=== PATIENT | female | born 1965 | race Caucasian/White ===

== ENCOUNTER 2020-07-20 08:33 | Outpatient (REF) | payer OTHER, SELFPAY ==
--- NOTE | ~2020-07-20 | MM_ITS ---
EXAMINATION: MM SCREENING DIGITAL BREAST TOMOSYNTHESIS, BILATERAL CLINICAL INFORMATION: Screening. Asymptomatic. The lifetime risk of breast cancer based on the Tyrer-Cuzick Model is 15%. COMPARISON: Mammography: 07/15/2019, 07/09/2018, 07/06/2017, 06/30/2016 TECHNIQUE: Digital breast tomosynthesis is performed in both the craniocaudal and mediolateral oblique views along with computer-aided detection (CAD). Synthesized 2D images are generated from the tomosynthesis. Additional left MLO view is provided. FINDINGS: There are scattered areas of fibroglandular density (ACR BI-RADS breast composition Category b). The right breast has scattered fine nodularity without significant change. Medial breast shows abnormal calcifications. There is an incidental oil cyst anterior periareolar 9:00 left breast with fine rim calcification. The bilateral skin contours are unremarkable. Left breast has chronic parenchymal asymmetry central 3:30 o'clock position. This appears slightly more prominent inferior medial aspect, possibly incompletely compressed glandular tissue. Additional views will be requested. There is some fine nodularity anterior upper outer left breast decreased since 2017. There is new nodularity retroareolar 4:00 left breast 5 x 6 mm. Patient will be recalled for targeted ultrasound of this area. MM/MM tomosynthesis screening BI IMPRESSION: Left: -New circumscribed nodule retroareolar 4:00 position, possibly a cyst. -Subtle asymmetric density in area of otherwise chronic asymmetry, possibly incompletely compressed glandular tissue or summation artifact. Right: -No mammographic evidence of malignancy. No significant changes. ASSESSMENT: BI-RADS 0: Incomplete - Need Additional Imaging Evaluation RECOMMENDATION: 1. Additional views of the left breast for the subtle asymmetric density (3D rolled CC x2; 3D ML). 2. Targeted ultrasound left breast for retroareolar nodule. 3. Radiology department staff will contact the patient for additional imaging. This patient's information was entered into a reminder system with a target due date for their next mammogram.
== END 2020-07-20 08:34 | disposition home or self-care (01) ==
LOC: HO.MAMMO 08:33
PROVIDERS: PCP Internal Medicine Sports Medicine; Visit Provider Internal Medicine Sports Medicine
DX: Z12.31 Encounter for screening mammogram for malignant neoplasm of breast (principal)
CPT/HCPCS: 77063; 77067

== ENCOUNTER 2020-08-06 13:39 | Outpatient (REF) | payer OTHER, SELFPAY ==
--- NOTE | ~2020-08-06 | MM_ITS ---
EXAMINATION: MM DIAGNOSTIC DIGITAL BREAST TOMOSYNTHESIS, LEFT US DIAGNOSTIC ULTRASOUND BREAST, LEFT CLINICAL INFORMATION: Recall from screening for 2 findings left breast: Circumscribed retroareolar nodule and chronic parenchymal asymmetry mid central lower breast. COMPARISON: Mammography: 07/20/2020 and prior studies dating back to 06/29/2013 TECHNIQUE: Digital breast tomosynthesis is performed. 2D images are generated from the tomosynthesis. The following views are obtained: 3-D rolled CC x2, 3-D ML. Ultrasound left breast is targeted to the retroareolar region and lower and lower outer breast. Grayscale imaging and color Doppler are performed without and with harmonics. FINDINGS: There are scattered areas of fibroglandular density (ACR BI-RADS breast composition Category b). The additional views show chronic parenchymal asymmetry central 5:30 o'clock position which has been present on multiple prior exams with some waxing and waning prominence likely due to shifting fibroglandular tissue. The additional views show no mass or definite developing density when compared with remote exams. Ultrasound demonstrates simple cyst 3:00 retroareolar breast corresponding to the nodule on mammography and measuring 0.7 x 0.4 cm. Additional ultrasound of the central inferior and inferolateral breast shows no solid mass or architectural abnormality or focal shadowing. Results are discussed with the patient at time of visit. The retroareolar finding on recent mammography corresponds to an incidental simple cyst. The parenchymal asymmetry is likely stable from prior studies with no definite developing density. As a precaution, short interval six-month follow-up left diagnostic 3-D mammography will be recommended. MM/MM tomosynthesis added views L IMPRESSION: 1. Incidental simple cyst retroareolar left breast corresponding to the recent mammography. 2. Chronic probably benign parenchymal asymmetry central lower left breast with no associated mass or architectural abnormality. ASSESSMENT: BI-RADS 3: Probably Benign RECOMMENDATION: Diagnostic left mammography in 6 months. This patient's information was entered into a reminder system with a target due date for their next mammogram.
== END 2020-08-06 13:40 | disposition home or self-care (01) ==
LOC: HO.MAMMO 13:39
PROVIDERS: Visit Provider Internal Medicine Sports Medicine
DX: R92.8 Other abnormal and inconclusive findings on diagnostic imaging of breast (principal)
CPT/HCPCS: 76642; 77061; 77065

== ENCOUNTER 2021-02-04 12:41 | Outpatient (REF) | payer OTHER, SELFPAY ==
--- NOTE | ~2021-02-04 | MM_ITS ---
EXAMINATION: MM DIAGNOSTIC DIGITAL BREAST TOMOSYNTHESIS, LEFT CLINICAL INFORMATION: Short interval six-month follow-up probable benign chronic parenchymal asymmetry central lower left breast. The lifetime risk of breast cancer based on the Tyrer-Cuzick Model is 16%. COMPARISON: Mammography: 08/06/2020, 07/20/2020, 07/15/2019, 07/09/2018, 07/06/2017, 06/30/2016, 05/06/2015, 06/29/2013; targeted left breast ultrasound 08/06/2020. TECHNIQUE: Digital breast tomosynthesis is performed in both the craniocaudal and mediolateral oblique views along with computer-aided detection (CAD). Synthesized 2D images are generated from the tomosynthesis. Additional CC and additional MLO views are provided. FINDINGS: There are scattered areas of fibroglandular density (ACR BI-RADS breast composition Category b). Parenchymal pattern is similar to prior studies. There is no interval developing density central lower breast. The chronic asymmetry is similar to prior studies. The subtle accentuated contour medial aspect is similar to CC view 2013. Left breast will be reassessed again at time of annual bilateral mammography, due in 6 months. The remainder left breast is without change. There is a nodule anterior upper outer periareolar region corresponding to cyst on ultrasound. There is also an oil cyst anterior upper inner left breast. No abnormal calcifications. Results are provided to the patient at time of visit by the technologist. MM/MM tomosynthesis diagnostic LT IMPRESSION: No interval developing density or mass or architectural changes. ASSESSMENT: BI-RADS 3: Probably Benign RECOMMENDATION: Diagnostic mammography at time of annual bilateral exam, due in 6 months. This patient's information was entered into a reminder system with a target due date for their next mammogram.
== END 2021-02-04 12:42 | disposition home or self-care (01) ==
LOC: HO.MAMMO 12:41
PROVIDERS: PCP Pediatrics; Visit Provider Pediatrics
DX: R92.8 Other abnormal and inconclusive findings on diagnostic imaging of breast (principal)
CPT/HCPCS: 77061; 77065

== ENCOUNTER 2021-08-12 12:01 | Outpatient (REF) | payer OTHER, SELFPAY ==
--- NOTE | ~2021-08-12 | MM_ITS ---
EXAMINATION: MM DIAGNOSTIC DIGITAL BREAST TOMOSYNTHESIS, BILATERAL CLINICAL INFORMATION: Due for yearly. 12 month follow-up probable benign chronic parenchymal asymmetry central lower outer left breast. TC score 15%. COMPARISON: Mammography: 02/04/2021 and multiple exams dating back to 03/17/2012. Ultrasound left breast 08/06/2020. TECHNIQUE: Digital breast tomosynthesis is performed in both the craniocaudal and mediolateral oblique views along with computer-aided detection (CAD). Synthesized 2D images are generated from the tomosynthesis. Additional left CC view is provided. FINDINGS: There are scattered areas of fibroglandular density (ACR BI-RADS breast composition Category b). Parenchymal pattern is similar to prior studies. There are no abnormal calcifications. The axilla and skin contours are unremarkable. The right breast is unremarkable. The left breast has chronic parenchymal asymmetry central 5:00 position possibly with duct ectasia under surveillance. The pattern is similar to prior exams dating back to 2011. There is no increased size. There is some involution of fibroglandular tissue in the breasts since the more remote exams. A nodule is again noted anterior 3:00 left breast corresponding to a cyst on targeted ultrasound. There is an incidental oil cyst with peripheral rim calcification again noted anterior 12:00 left breast. Results are provided to the patient at time of visit by the technologist. Left breast asymmetry will be reassessed again in 6 months. MM/MM tomosynthesis diagnostic BI IMPRESSION: 1. Left: No significant changes from prior exams. 2. Right: No mammographic evidence of malignancy. ASSESSMENT: BI-RADS 3: Probably Benign RECOMMENDATION: Diagnostic left mammography in 6 months. This patient's information was entered into a reminder system with a target due date for their next mammogram.
== END 2021-08-12 12:02 | disposition home or self-care (01) ==
LOC: HO.MAMMO 12:01
PROVIDERS: PCP Pediatrics; Visit Provider Pediatrics
DX: R92.8 Other abnormal and inconclusive findings on diagnostic imaging of breast (principal)
CPT/HCPCS: 77062; 77066

== ENCOUNTER 2022-02-17 12:43 | Outpatient (REF) | payer OTHER, SELFPAY ==
--- NOTE | ~2022-02-17 | MM_ITS ---
EXAMINATION: MM DIAGNOSTIC DIGITAL BREAST TOMOSYNTHESIS, LEFT CLINICAL INFORMATION: Short interval follow-up probable benign chronic parenchymal asymmetry mid 5:00 left breast inferomedial aspect of the parenchyma. The lifetime risk of breast cancer based on the Tyrer-Cuzick Model is 15%. COMPARISON: Mammography: 08/12/2021, 02/04/2021, 08/06/2020, 07/20/2020 (BI-RADS 0), targeted ultrasound left breast 08/06/2020; prior mammograms dating back to 03/17/2012. TECHNIQUE: Digital breast tomosynthesis is performed in both the craniocaudal and mediolateral oblique views along with computer-aided detection (CAD). Synthesized 2D images are generated from the tomosynthesis. FINDINGS: There are scattered areas of fibroglandular density (ACR BI-RADS breast composition Category b). There is chronic parenchymal asymmetry central 5:00 left breast, similar to multiple prior exams dating back to 2011. The subtle nodular medial margin is stable from recent diagnostic exams and similar to remote prior studies 2013 and 2011. No correlate on MLO view. Left breast will be reassessed again at time of annual bilateral mammography, due in 6 months, to conclude long-term surveillance. Remainder of the left breast is unremarkable. The retroareolar cyst 3:00 anterior breast is regressed from recent imaging. No abnormal calcifications. Skin contours are smooth. Results are provided to the patient at time of visit by the technologist. MM/MM tomosynthesis diagnostic LT IMPRESSION: No significant changes from prior studies. ASSESSMENT: BI-RADS 3: Probably Benign RECOMMENDATION: Diagnostic mammography at time of annual bilateral mammography, due in 6 months. This patient's information was entered into a reminder system with a target due date for their next mammogram.
== END 2022-02-17 12:44 | disposition home or self-care (01) ==
LOC: HO.MAMMO 12:43
PROVIDERS: PCP Pediatrics; Visit Provider Pediatrics
DX: R92.2 Inconclusive mammogram (principal)
CPT/HCPCS: 77061; 77065

== ENCOUNTER 2022-08-18 13:18 | Outpatient (REF) | payer OTHER, SELFPAY ==
--- NOTE | ~2022-08-18 | MM_ITS ---
EXAMINATION: MM DIAGNOSTIC DIGITAL BREAST TOMOSYNTHESIS, BILATERAL CLINICAL INFORMATION: Due for yearly. Also follow-up probable benign chronic parenchymal asymmetry mid 5:00 left breast. The lifetime risk of breast cancer based on the Tyrer-Cuzick Model is 13%. COMPARISON: Multiple prior mammography exams, most recent 02/17/2022. TECHNIQUE: Digital breast tomosynthesis is performed in both the craniocaudal and mediolateral oblique views along with computer-aided detection (CAD). Synthesized 2D images are generated from the tomosynthesis. Additional exaggerated left CC view is provided. FINDINGS: There are scattered areas of fibroglandular density (ACR BI-RADS breast composition Category b). Breasts are predominantly fatty replaced with scattered stable fibroglandular densities and stromal markings. The chronic asymmetry mid central 5:00 left breast is similar to prior exams. There is no developing density from remote prior mammography. This conclude surveillance. There is no significant mass or developing density or architectural abnormality. No abnormal calcifications. The axilla are unremarkable. Results are provided to the patient at time of visit by the technologist. MM/MM tomosynthesis diagnostic BI IMPRESSION: No mammographic evidence of malignancy. No significant changes from prior studies. ASSESSMENT: BI-RADS 2: Benign RECOMMENDATION: Routine annual mammography screening. This patient's information was entered into a reminder system with a target due date for their next mammogram.
== END 2022-08-18 13:19 | disposition home or self-care (01) ==
LOC: HO.MAMMO 13:18
PROVIDERS: PCP Pediatrics; Visit Provider Pediatrics
DX: R92.2 Inconclusive mammogram (principal)
CPT/HCPCS: 77062; 77066

== ENCOUNTER 2023-08-24 12:34 | Outpatient (REF) | payer OTHER, SELFPAY ==
--- NOTE | ~2023-08-24 | MM_ITS ---
EXAMINATION: MM SCREENING DIGITAL BREAST TOMOSYNTHESIS, BILATERAL CLINICAL INFORMATION: Screening. Asymptomatic. COMPARISON: Mammography: This study is compared with prior exams dating back to 2019. TECHNIQUE: Digital breast tomosynthesis is performed in both the craniocaudal and mediolateral oblique views along with computer-aided detection (CAD). Synthesized 2D images are generated from the tomosynthesis. FINDINGS: There are scattered areas of fibroglandular density (ACR BI-RADS breast composition Category b). There are no significant masses, abnormal calcifications, or other abnormalities. MM/MM tomosynthesis screening BI IMPRESSION: No mammographic evidence of malignancy. ASSESSMENT: BI-RADS BI-RADS 2 - Benign Findings RECOMMENDATION: Routine annual mammography screening. 1 year F/U This examination should not preclude the clinical evaluation of a suspicious palpable abnormality. This patient's information was entered into a reminder system with a target due date for their next mammogram.
== END 2023-08-24 12:35 | disposition home or self-care (01) ==
LOC: HO.MAMMO 12:34
PROVIDERS: PCP Pediatrics; Visit Provider Pediatrics
DX: Z12.31 Encounter for screening mammogram for malignant neoplasm of breast (principal)
CPT/HCPCS: 77063; 77067

== ENCOUNTER → 2023-08-24 13:00 | Outpatient (BNV) | payer OTHER, SELFPAY | PROVIDERS: PCP Pediatrics; Visit Provider Radiology Diagnostic Radiology | DX: Z12.31 Encounter for screening mammogram for malignant neoplasm of breast (principal) | CPT/HCPCS: 77063; 77067 ==

== ENCOUNTER 2024-09-05 12:46 | Outpatient (REF) | payer OTHER, SELFPAY ==
--- OUTSIDE RECORDS SUMMARY | 2024-09-05 15:22 | XMS_ITS | Encounter Summary ---
Author Organization [facility] Address [address] [place] [address] Phone Care Team Providers Care Software Packaging Engineer Name Role Phone Christiano Lloyd MD Primary Care Provider + Reason for Visit * Reason Comments Med Refill Encounter Details Date Type Department Care Team (Late st Contact Info) Description 07/27/2024 Refill [facility] [address] [place] [address] Vivek Montana MD [address] [place] [address] Social History Tobacco Use Types Packs/Day Years Used Date Smoking Tobacco: Former Alcohol Use Standard Drinks/Week Comments Yes 0 (1 standard drink = 0.6 oz pure alcohol) Alcoholic Drinks/day: Occasional social drink Comments Unknown Sex and Gender Information Value Date Recorded Sex Assigned at Not on file Legal Sex Female 4:37 PM EST Gender Identity Not on file Sexual Orientation Not on file documented as of this encounter Plan of Treatment Upcoming Encounters Date Type Department Care Team (Late st Contact Info) Description 10/03/2024 9:00 AM EDT Office Visit [facility] [address] [place] [address] Vivek Montana MD [address] [place] [address] documented as of this encounter Visit Diagnoses Not on filedocumented in this encounter Care Teams Software Packaging Engineer Relationship Specialty Start Date End Date Christiano Lloyd MD PCP - General Internal Medicine 11/26/21 documented as of this encounter
--- OUTSIDE RECORDS SUMMARY | 2024-09-05 15:22 | XMS_ITS | Data Portability ---
Author Organization [facility] [address] Address [address] [place] [address] Care Team Providers Care Linesperson Name Role Phone LAVON BLACKWELL Primary Care Provider Assessment No assessment recorded. Plan of Treatment Reminders Order Date Submit Date Provider Last Modified By Organization Details Last Modified Time Details Appointments None recorded. Lab None recorded. Referral None recorded. Procedures None recorded. Surgeries None recorded. Imaging None recorded. Medication Orders triamcinolo ne acetonide 0.1 % topical cream 2023 024 [id number], [address] [place], [address], 4 10:34:13 prednisone 20 mg tablet 2021 022 [id number], [address] [place], [address], 4 10:25:36 Patient TargetsNo targets recorded. Patient Instructions Encounter Date Encounter Id Patient Instructions Last Modified By Organization Details Last Modified Time 05/03/2022 [id number] cough: care instructions Not available 05/03/2022 08:45:55 As we discussed your symptoms are likely viral and we are treating your symptoms while your immune system takes care of things. Drink plenty of fluid and stay on the Mucinex. You can also use tylenol and ibuprofen for pain or fever. Follow up with your PCP as needed. Not available 05/03/2022 08:45:24 01/27/2024 [id number] Based on your ex am and presentation, you are being diagnosed with NONSPECIFIC RASH. The following is my recommendations to help you with your condition: 1. Take Antihistamine - like Claritin, Nighat, or Benedryl 2. Hot showers will make you more itchy. 3. No creams or lotions 4. Cool Compresses 5. Try not to scratch or itch since this can lead to infection. Return to clinc in one week if no improvement You should be seen more urgently if you develop any of the followin. Worsening Redness 2. Purulent Discharge from the skin 3. Fever > 101.0 4. Joint Pain 5. Swelling [id number] Not available 01/27/2024 10:34:48 Reason for Referral None Reported. Problems Name Problem SNOMED Code Status Onset Date Resolution Date Notes Provider Name and Address Organization Details Recorded Time Hypertensive disorder 79491416 Active 2021 MU fermin, [place] - [facility] 2 08:14:01 Notes:born with one kidney Problem Notes None recorded. Procedures Surgical History Date Name Laterality Status Provider Name and Address Organization Details Recorded Time hysterectomy completed MU MINER [place] - [facility] 05/03/2022 08:14:35 colonoscopy completed MU MINER [place] - [facility] 05/03/2022 08:14:42 section completed MU MINER [place] - [facility] 05/03/2022 08:14:50 Imaging Results None recorded. Procedure Notes None recorded. Medical Equipment None Reported. Allergies Allergen ID Allergen Name Allergen Category Reaction Reaction Severity Criticality Documentation Date Start Date Code Code System Note Provider Name and Address Organization Details Recorded Time 7059 Bactrim medicatio n anaphylax is Not available Not available 05/03/2022 37075 9 RxNorm MU MINER null, [place] - [facility] 2 08:12:27 7064 Non-stero idal anti-infl ammatory agent (product) medicatio n rash Not available Not available 05/03/2022 52462 005 SNOMED MU MINER null, [place] - [facility] 2 08:12:39 Medications Name Sig Start Date Stop Date Status Note LastModified by Organization Details LastModified Time prednisone 20 mg tablet Take 2 tablets every day by oral route for 5 days. 01/26 completed Not Available Not Available Not Available triamcinolo ne acetonide 0.1 % topical cream APPLY A THIN LAYER TO THE AFFECTED AREA(S) BY TOPICAL ROUTE 2 TIMES PER DAY FOR 7 DAYS 2023 active Not Available Not Available Not Avai lable valsartan active Not Available Not Isabela ilable Not Available folic acid active Not Available Not Av ailable Not Available Multi Vitamin active Not Available Not Available Not Available Vitals Date Recorded Body height Body mass index (BMI) Body weight Respiratory rate Pain severity - 0-10 verbal numeric rating [Score] - Reported Oxygen saturation Oxygen saturation in Arterial blood by Pulse oximetry Heart rate Body temperature Systolic blood pressure Diastolic blood pressure Provider Name and Address Organization Details Last Updated DateTime 2 161.29 cm 42.5 kg/m2 859406. 54 g 18 /min 0 97 % 97 % 101 /min 98.5 [degF] 131 mm[Hg] 83 mm[Hg] MU MINER [employer] 2 08:16:03 Date Recorded Body height Body mass index (BMI) Body weight Oxygen saturation Oxygen saturation in Arterial blood by Pulse oximetry Heart rate Body temperature Systolic blood pressure Diastolic blood pressure Provider Name and Address Organization Details Last Updated DateTime 4 160.02 cm 39.9 kg/m2 329429. 28 g 99 % 99 % 68 /min 98 [degF] 110 mm[Hg] 76 mm[Hg] [facility] 4 10:24:57 Social History Question Answer Notes LastModified by Organizat ion Details LastModified Time Tobacco Smoking Status Never Smoker [facility] [place] [facility] 05/03/2022 08:14:25 What Is Your Level Of Alcohol Consumption? Occasional Information not available 05/03/2022 How Many Times Per Week Do You Consume Alcohol? Less Than 1 Time Per Week Information not available 01/27/2024 Are You Currently Employed? Yes Information not available 01/27/2024 Have You Had A Flu Shot This Season? Yes Information not available 01/27/2024 If No, Would You Like A Flu Shot Today? Yes Information not available 01/27/2024 What Is Your Relationship Status? Information not available 01/27/2024 Are You Passively Exposed To Smoke? No Information no t available 01/27/2024 Do You Or Have You Ever Used Any Other Forms Of Tobacco Or Nicotine? No Information not available 05/03/2022 Sex: Unknown Functional Status None recorded. Mental Status None recorded. Family History Relationship Description Onset Age of this Age Resolved Age Notes LastModified by Organization Details LastModified Time Father No current problems or disability [email or web address] Not available 05/03 08:14:14 Mother No current problems or disability [email or web address] Not available 05/03 08:14:14 Medical History No medical history recorded. Gynecological History Statement/Question Response Is there any chance of ? No LMP N/A Obstetrics History GPAL:G 0 P 0 0 0 0 Immunizations Vaccine Type Date Status Note Provider Nam e and Address Organization Details Recorded Time influenza, unspecified formulation 03/31/2022 completed DL Clark - [facility] 05/03/2022 08:13:27 Past Encounters Encounter ID Performer Location Encounter Start Date Encounter Closed Date Diagnosis/Indication Diagnosis SNOMED-CT Code Diagnosis ICD10 Code Diagnosis Note [id number] [facility] [facility] [address] 03/01/2018 09:55:22 03/01/2018 11:23:17 [id number] [facility] [address] [address] 05/16/2021 11:42:57 05/16/2021 13:50:14 [id number] [facility] [address] [facility] [address] [place] [address] 05/03/2022 08:05:42 05/03/2022 08:54:50 Acute bronchitis 42057406 J20.9 [id number] [facility] [address] [facility] [address] [address] 01/27/2024 10:03:16 01/27/2024 10:47:36 Localized eruption of skin 748059871 R21 Health Concerns Section Related Observation LastModified by Organization Detai ls LastModified Time None Recorded Concern Status LastModified by Organization Details LastModified Time None Recorded Advance Directives Directive None Recorded Payers Encounter Date Sequence Insurance Name Policy Number Policy Penny Covered Member ID Penny Member ID Guarantor Name 05/16/2021 1 [facility] Elizabet Saenz [id number] 1 Elizabet Saenz 05/03/2022 1 [facility] Elizabet Saenz [id number] 1 Elizabet Saenz 01/27/2024 1 [facility] Elizabet Saenz [id number] Elizabet Saenz Notes Date Note Type Note Provider Name and Address Organization Details Recorded Time 05/03/20 22 text/htm l CoughReported bypatient.source of patient informationInformation obtained from patient; Patient arrived at Urgent Care ambulatory; learning styles: auditory Quality:productive cough; symptoms worse with lying down Severity:improving; moderate Timing:improving Context:Patient denies vaping; non-smoker Associated Symptoms:no fever; no chills; no chest pain; no heartburn; no nausea; no vomiting; no edema; no agitation; no wheezing; no post nasal drip DL W[address], [place], [address], [facility] 05/03/2022 08:52:47 01/27/20 24 text/htm l 58 y.o female pt presetns with pruritic rash on both chest, neck and back on both sides x 1-2 days. Pt denies travel, dealing with at risk population or recent exposures to new chemicals. Pt denies fever, pain or other sx's. DL GRIFFITHS [address], [address], [employer] [employer] 01/27/2024 12:46:11 OBGyn Episode No OBEpisode recorded.
--- OUTSIDE RECORDS SUMMARY | 2024-09-05 15:22 | XMS_ITS | Encounter Summary ---
Author Organization [facility] Address [address] [place] [address] Phone Care Team Providers Care Transportation Manager Name Role Phone Christiano Lloyd MD Primary Care Provider + Reason for Visit * Reason Comments Med Change Request Encounter Details Date Type Department Care Team (Late Contact Info) Description 08/04/2021 Refill [facility] [address] [place] [address] Garret Jarrett MD [address] [place] [address] Social History Tobacco Use Types [...] Office Visit [facility], [address] [place] [place] [address] Vivek Montana MD [address] [place] [address] documented as of this encounter Visit Diagnoses Not on filedocumented in this encounter Care Teams Transportation Manager Relationship Specialty Start Date End Date Christiano Lloyd MD PCP - General Internal Medicine 11/26/21 documented as of this encounter
--- OUTSIDE RECORDS SUMMARY | 2024-09-05 15:22 | XMS_ITS | Encounter Summary ---
Author Organization [facility] Address [address] [place] [address] Phone Care Team Providers Care Dyno Technician Name Role Phone Christiano Lloyd MD Primary Care Provider + Reason for Visit * Reason Comments Med Change Request Encounter Details Date Type Department Care Team (Late Contact Info) Description 08/08/2021 Refill [facility] [address] [place] [address] Garret Jarrett MD [address] [place] [address] Social History Tobacco Use Types [...] Office Visit [facility], [address] [address] Vivek Montana MD [address] [place] [address] documented as of this encounter Visit Diagnoses Not on filedocumented in this encounter Care Teams Dyno Technician Relationship Specialty Start Date End Date Christiano Lloyd MD PCP - General Internal Medicine 11/26/21 documented as of this encounter
--- OUTSIDE RECORDS SUMMARY | 2024-09-05 15:22 | XMS_ITS | Encounter Summary ---
Author Organization [facility] Address [address] [place] [address] Phone Care Team Providers Care Research Hydrologist Name Role Phone Christiano Lloyd MD Primary Care Provider + Reason for Visit * Reason Comments Med Change Request Encounter Details Date Type Department Care Team (Late Contact Info) Description 07/10/2021 Refill [facility] [address] [place] [address] Garret Jarrett MD [address] [place] [address] Social History Tobacco Use Types [...] Office Visit [facility], [address] [place] [address] Vivek Montana MD [address] [place] [address] documented as of this encounter Visit Diagnoses Not on filedocumented in this encounter Care Teams Research Hydrologist Relationship Specialty Start Date End Date Christiano Lloyd MD PCP - General Internal Medicine 11/26/21 documented as of this encounter
--- OUTSIDE RECORDS SUMMARY | 2024-09-05 15:22 | XMS_ITS | Clinical Summary ---
Author Organization [facility] Address [address] [place] [address] Phone Care Team Providers Care Electrical Laboratory Technician Name Role Phone Christiano Lloyd MD Primary Care Provider + Allergies Active Allergy Reactions Criticality Noted Date Comments Nsaids Rash Low 03/01/2019 Sulfa Antibiotics Other (see comments) 07/04/19 22 Sulfamethoxazole-Trimet hopri 03/01/2019 Throat tightness Medications folic acid (FOLVITE) 1 MG tablet TAKE 1 TABLET (1,000 MCG TOTAL) BY MOUTH ONCE DAILY 90 tablet 3 07/26/2024 Active valsartan (DIOVAN) 160 MG tablet Take 1 tablet (160 mg total) by mouth 1 (one) time each day 90 tablet 3 07/27/2024 Active Active Problems Problem Noted Date Diagnosed Date Renal agenesis, 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 Overview (07/04/2021): solitary left kidney 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 Essential hypertension Focal segmental glomerulosclerosis Proteinuria Resolved Problems Problem Noted Date Diagnosed Date Resolved Date Stage 3a chronic kidney disease 07/05/2020 07/14/2022 Encounters Date Type Department Care Team Description 07/27/2024 Refill [facility] [place], [address] [place] [address] Lindsey Mack MA 07/27/2024 Refill [facility] [address] [place] [phone] Vivek Montana MD 07/26/2024 Refill [facility] [address] [place] [address] Vivek Montana MD from Last 3 Months Immunizations Name Administration Dates Next Due Influenza, MDCK, PF, Quadrivalent 03/16/2019 Influenza, Quadrivalent, Preservative Free 03/28 Family History Medical History Relation Comments Prostate cancer Brother Asthma Daughter Stroke Father Breast cancer Mother Relation Status Comments Brother Daughter Alive Father Mother Social History Tobacco Use Types Packs/Day Years Used Date Smoking Tobacco: Former Alcohol Use Standard Drinks/Week Comments Yes 0 (1 standard drink = 0.6 oz pure alcohol) Alcoholic Drinks/day: Occasional social drink Comments Unknown Sex and Gender Information Value Date Recorded Sex Assigned at Not on file Legal Sex Female 4:37 PM EST Gender Identity Not on file Sexual Orientation Not on file Last Filed Vital Signs Vital Sign Reading Time Taken Comments Blood Pressure 104/66 06/26/2019 8:09 AM EST Pulse - - Temperature - - Respiratory Rate - - Oxygen Saturation - - Inhaled Oxygen Concentration - - Weight 109 kg (240 lb) 06/26/2019 8:09 AM EST Height 160 cm (5' 3 ) 06/27/2018 12:00 PM EST Body Mass Index 42.51 06/27/2018 12:00 PM EST Plan of Treatment Upcoming Encounters Date Type Department Care Team (Late st Contact Info) Description 10/03/2024 9:00 AM EDT Office Visit [facility] [address] [place] [phone] Vivek Montana MD [address] [place] [address] [place] [phone] Health Maintenance Due Date Last Done Comments Breast Cancer Screening 1965 Colorectal Cancer Screening: Annual FOBT 10/22/2012 Colorectal Cancer Screening: Colonoscopy 10/22/2012 Colorectal Cancer Screening: Sigmoidoscopy 10/22/2012 Pneumococcal Vaccine: Pediatrics (0 to 5 Years) and At-Risk Patients (6 to 64 Years) (2 of 2 - PCV) 11/26/2022 11/26/2021 Influenza Vaccine (Season Ended) 2025 03/31/2022, 03/28/2020, 03/16/2019 Hepatitis B Vaccine Aged Out No longe r eligible based on patient's age to complete this topic Procedures Procedure Name Priority Date/Time Associated Diagnosis Comments PTH, INTACT Routine 06/24/2024 8:31 AM EST MAGNESIUM Routine 06/24/2024 8:31 AM EST ALBUMIN Routine 06/24/2024 8:31 AM EST PHOSPHATE ( PHOSPHORUS) Routine 06/24/2024 8:31 AM EST URIC ACID Routine 06/24/2024 8:31 AM EST VITAMIN D 25 HYDROXY Routine 06/24/2024 8:31 AM EST URINE ALBUMIN / CREATININE RATIO Routine 06/24/2024 8:31 AM EST BASIC METABOLIC PANEL Routine 06/24/2024 8:31 AM EST CBC Routine 06/24/2024 8:31 AM EST URINALYSIS WITH MICROSCOPIC Routine 06/24/2024 8:31 AM EST MICROSCOPIC EXAMINATION - DO NOT USE Routine 06/24/2024 8:31 AM EST from Last 3 Months Results * (ABNORMAL) Microscopic Examination (06/24/2024 8:31 AM EST) WBC, Urine 11-30(A) 0 - 5 /hpf [facility] RBC, Urine 0-2 0 - 2 /hpf [facility] Squamous Epithelial, Urine >10(A) 0 - 10 /hpf [facility] Casts None seen None seen /lpf [facility] Bacteria, Urine None seen None seen/Few [facility] 06/24/2024 8:31 AM EST 06/24/2024 Vivek Montana MD LAB MICROBIOLOGY - GENERAL OR DERABLES Final Result [facility] [address] [place] [address] * (ABNORMAL) Urine Albumin / Creatinine Ratio (06/24/2024 8:31 AM EST) Creatinine, Ur 132.9 Not Estab. mg/dL [facility] Albumin, Urine 175.7 Not Estab. ug/mL [facility] Albumin/Creatin ine Ratio 132(H) 0 - 29 mg/g creat [facility] Comment: ? Normal: ?0 - ??29 ? Moderately increased: 30 - 300 ? Severely increased: ? >300 06/24/2024 8:31 AM EST 06/24/2024 Vivek Montana MD LAB URINE ORDERABLES Final Re sult [facility] [address] [place] [address] * Vitamin D 25 Hydroxy (06/24/2024 8:31 AM EST) Vitamin D, 25-OH, Total 55.4 30.0 - 100.0 ng/mL [facility] Comment: Vitamin D deficiency has been defined by the [place] of Medicine and an Endocrine Society practice guideline as a level of serum 25-OH vitamin D less than 20 ng/mL (1,2). The Endocrine Society went on to further define vitamin D insufficiency as a level between 21 and 29 ng/mL (2). 1. IOM ([place] of Medicine). 2010. Dietary reference ?? intakes for calcium and D. [place]: The ?? National [employer]. 2. Maye MF, Martha SIMS, Juan RAI, et al. ?? Evaluation, treatment, and prevention of vitamin D ?? deficiency: an Endocrine Society clinical practice ?? guideline. JCEM. 2010; 96(7):1911-30. 06/24/2024 8:31 AM EST 06/24/2024 us Vivek Montana MD LAB BLOOD ORDERABLES Final Re sult [facility] [address] [place] [address] * (ABNORMAL) Urinalysis with microscopic (06/24/2024 8:31 AM EST) Specific [place], Urine 1.018 1.005 - 1.030 [facility] pH Urine 6.5 5.0 - 7.5 [facility] [phone] Color, Urine Yellow Yellow [facility] [phone] Appearance Urine Clear Clear [facility] WBC Esterase Urine 2+(A) Negative [facility] Protein, Ur 2+(A) Negative/Tra ce [facility] [phone] Glucose, Ur Negative Negative [facility] Ketones, Urine Negative Negative [facility] Blood Urine Negative Negative [facility] Bilirubin Urine Negative Negative [facility] Urobilinogen Urine 0.2 0.2 - 1.0 mg/dL [facility] Nitrite, Urine Negative Negative [facility] Microscopic Examination See below: [facility] Comment:Microscopic was shadia cated and was performed. 06/24/2024 8:31 AM EST 06/24/2024 Vivek Montana MD LAB URINE ORDERABLES Final Re sult Performing Organization Address City/[facility]/ZIP Co de Phone Number [facility] [address] [place] [address] * CBC (06/24/2024 8:31 AM EST) WBC 5.3 3.4 - 10.8 x10E3/uL [facility] RBC 4.34 3.77 - 5.28 x10E6/uL [facility] Hemoglobin 13.3 11.1 - 15.9 g/dL [facility] Hematocrit 39.8 34.0 - 46.6 % [facility] MCV 92 79 - 97 fL [facility] MCH 30.6 26.6 - 33.0 pg [facility] MCHC 33.4 31.5 - 35.7 g/dL [facility] RDW 11.8 11.7 - 15.4 % [facility] Platelets 269 150 - 450 x10E3/uL [facility] 06/24/2024 8:31 AM EST 06/24/2024 Vivek Montana MD LAB BLOOD ORDERABLES Final Re sult [facility] [address] [place] [address] * Uric Acid (06/24/2024 8:31 AM EST) Uric Acid 7.0 3.0 - 7.2 mg/dL [facility] Comment:Therapeutic target f or gout patients: <6.0 06/24/2024 8:31 AM EST 06/24/2024 Vivek Montana MD LAB BLOOD ORDERABLES Final Re sult Performing Organization Address [facility] Co de Phone Number [facility] [address] [place] [address] * Phosphorus (06/24/2024 8:31 AM EST) Phosphorus 3.6 3.0 - 4.3 mg/dL [facility] 06/24/2024 8:31 AM EST 06/24/2024 us Vivek Montana MD LAB BLOOD ORDERABLES Final Re sult Performing Organization Address [facility]/ZIP Co de Phone Number [facility] [address] [place] [address] * PTH, Intact (06/24/2024 8:31 AM EST) PTH 28 15 - 65 pg/mL [facility] 06/24/2024 8:31 AM EST 06/24/2024 us Vivek Montana MD LAB BLOOD ORDERABLES Final Re sult Performing Organization Address City/[facility]/ZIP Co de Phone Number [facility] [address] [place] [address] * Magnesium (06/24/2024 8:31 AM EST) Pathologist [facility] Magnesium 1.7 1.6 - 2.3 mg/dL [facility] 06/24/2024 8:31 AM EST 06/24/2024 Vivek Montana MD LAB BLOOD ORDERABLES Final Re [facility]ult [facility] [address] [place] [address] * Albumin (06/24/2024 8:31 AM EST) Pathologist [facility] Albumin 4.2 3.8 - 4.9 g/dL [facility] 06/24/2024 8:31 AM EST 06/24/2024 Vivek Montana MD LAB BLOOD ORDERABLES Final Re sult Performing Organization Address City/[facility]/ZIP Co de Phone Number [facility] [address] [place] [address] * (ABNORMAL) Basic Metabolic Panel (06/24/2024 8:31 AM EST) Pathologist [facility] Glucose 91 70 - 99 mg/dL [facility] BUN 17 8 - 27 mg/dL [facility] Creatinine 1.15(H) 0.57 - 1.00 mg/dL [facility] eGFR CKD-EPI CR 2020 55(L) >59 mL/min/1.7 3 [facility] BUN/Creatinine Ratio 15 12 - 28 [facility] Sodium 141 134 - 144 mmol/L [facility] Potassium 4.4 3.5 - 5.2 mmol/L [facility] Chloride 103 96 - 106 mmol/L [facility] Bicarbonate (CO2) 24 20 - 29 mmol/L [facility] Calcium 9.8 8.7 - 10.3 mg/dL [facility] 06/24/2024 8:31 AM EST 06/24/2024 Vivek Montana MD LAB BLOOD ORDERABLES Final Re sult [facility] [address] [place] [address] from Last 3 Months Insurance [employer]) [phone] ([place] [id number] Care Teams Electrical Laboratory Technician Relationship Specialty Start Date End Date Christiano Lloyd MD PCP - General Internal Medicine 11/26/21
--- OUTSIDE RECORDS SUMMARY | 2024-09-05 15:22 | XMS_ITS | Encounter Summary ---
Author Organization [facility] Address [address] [place] [address] Phone Care Team Providers Care Rescue Worker Name Role Phone Christiano Lloyd MD Primary Care Provider + Reason for Visit * Reason Onset Date Comments Med Refill 08/18/2023 Encounter Details Date Type Department Care Team (Late st Contact Info) Description 08/18/2023 Refill [facility] [address] [place] [phone] Garret Jarrett MD [address] [place] [address] Social History Tobacco Use Types [...] Office Visit [facility], [address] [place] [address] Vivek Montana MD [address] [place] [address] documented as of this encounter Visit Diagnoses Not on filedocumented in this encounter Care Teams Rescue Worker Relationship Specialty Start Date End Date Christiano Lloyd MD PCP - General Internal Medicine 11/26/21 documented as of this encounter
--- OUTSIDE RECORDS SUMMARY | 2024-09-05 15:22 | XMS_ITS ---
Author Name [facility] Organization Unknown Care Team Organization Name Specialty Phone Email Start Date End [facility]
--- OUTSIDE RECORDS SUMMARY | 2024-09-05 15:22 | XMS_ITS | Encounter Summary ---
Author Organization [facility] Address [address] [place] [address] Phone Care Team Providers Care Certified Welding Inspector Name Role Phone Christiano Lloyd MD Primary Care Provider + Reason for Visit * Reason Onset Date Comments Med Refill 08/11/2023 Encounter Details Date Type Department Care Team (Late st Contact Info) Description 08/11/2023 Refill [facility] [address] [place] [phone] Garret Jarrett MD [address] [place] [address] Social History Tobacco Use Types [...] Transplant Services [facility], [address] [place] [address] Vivek Montana MD [address] [place] [address] documented as of this encounter Visit Diagnoses Not on filedocumented in this encounter Care Teams Certified Welding Inspector Relationship Specialty Start Date End Date Christiano Lloyd MD PCP - General Internal Medicine 11/26/21 documented as of this encounter
== END 2024-09-05 12:47 | disposition home or self-care (01) ==
LOC: HO.MAMMO 12:46
PROVIDERS: PCP Pediatrics; Visit Provider Pediatrics
DX: Z12.31 Encounter for screening mammogram for malignant neoplasm of breast (principal)
CPT/HCPCS: 77063; 77067

== ENCOUNTER → 2024-09-05 13:00 | Outpatient (BNV) | payer OTHER, SELFPAY | PROVIDERS: PCP Pediatrics; Visit Provider Internal Medicine | DX: Z12.31 Encounter for screening mammogram for malignant neoplasm of breast (principal) | CPT/HCPCS: 77063; 77067 ==

== ENCOUNTER 2024-10-24 10:18 | Outpatient (REF) | payer OTHER, SELFPAY ==
--- NOTE | ~2024-10-24 | US_ITS ---
EXAMINATION: MM DIAGNOSTIC DIGITAL BREAST TOMOSYNTHESIS, LEFT Limited left breast ultrasound. CLINICAL INFORMATION: Call back from screening for focal asymmetry in the central outer left breast with associated distortion. COMPARISON: Mammography: Prior's on PACS. TECHNIQUE: Digital breast tomosynthesis is performed in both the craniocaudal and mediolateral oblique views along with computer-aided detection (CAD). Synthesized 2D images are generated from the tomosynthesis. FINDINGS: There are scattered areas of fibroglandular density (ACR BI-RADS breast composition Category b). Focal asymmetry in the central outer breast middle depth with associated distortion persist on additional imaging projections. No suspicious calcifications or other abnormal findings. Targeted color Doppler ultrasound scanning in the central and lower outer left breast from 2-6 o'clock demonstrates a tolerated then Y hypoechoic irregular solid mass at 4:00 8 cm from nipple measuring 6 x 8 x 6 mm probable correlate for the focal asymmetry on mammography. US/US breast LT limited mamm only IMPRESSION: Solid irregular mass at 4:00 8 cm from the nipple correlating with the focal asymmetry on mammography with associated distortion. Recommend ultrasound guided core needle biopsy at this time for confirmation. The findings and recommendations were discussed with the patient the procedure will be scheduled. ASSESSMENT: BI-RADS BI-RADS 4 - Suspicious finding RECOMMENDATION: Biopsy recommended Results were provided to the patient at time of visit by the technologist. This patient's information was entered into a reminder system with a target due date for their next mammogram. Electronically signed by: Lynn Rider DO 10/24/2024 12:03 PM EDT
--- OUTSIDE RECORDS SUMMARY | 2024-10-24 11:02 | XMS_ITS | Encounter Summary ---
Author Organization [facility] [place], Address [address] [place] [address] Phone Care Team Providers Care Tick Sewer Name Role Phone Christiano Lloyd MD Primary Care Provider + Reason for Visit * Reason Onset Date Comments Med Refill 08/11/2023 Encounter Details Date Type Department Care Team (Late st Contact Info) Description 08/11/2023 Refill [facility] [address] [place] [address] Garret Jarrett MD Social History Tobacco Use Types Packs/Day Years [...] Care Team (Late st Contact Info) Description 03/06/2025 8:50 AM EDT Office Visit [facility] [place], [address] [place] [address] Vivek Montana MD [address] [place] [phone] documented as of this encounter Visit Diagnoses Not on filedocumented in this encounter Care Teams Tick Sewer Relationship Specialty Start Date End Date Christiano Lloyd MD PCP - General Internal Medicine 11/26/21 documented as of this encounter
== END 2024-10-24 10:19 | disposition home or self-care (01) ==
LOC: HO.MAMMO 10:18
PROVIDERS: PCP Pediatrics; Visit Provider Pediatrics
DX: R92.8 Other abnormal and inconclusive findings on diagnostic imaging of breast (principal)
CPT/HCPCS: 76642; 77061; 77065

== ENCOUNTER → 2024-10-24 10:30 | Outpatient (BNV) | payer OTHER, SELFPAY | PROVIDERS: PCP Pediatrics; Visit Provider Internal Medicine | DX: N63.20 Unspecified lump in the left breast, unspecified quadrant (principal); N63.42 Unspecified lump in left breast, subareolar | CPT/HCPCS: 76642; 77061; 77065 ==

== ENCOUNTER 2024-11-01 09:52 | Outpatient (REF) | payer OTHER, SELFPAY ==
--- NOTE | ~2024-11-01 | MM_ITS ---
PROCEDURE: ULTRASOUND-GUIDED LEFT BREAST BIOPSY CLINICAL INFORMATION: Left breast focal asymmetry developing with a correlating hypoechoic solid irregular mass at 4:00 on ultrasound. COMPARISON: Priors on PACS. TECHNIQUE: The details of the procedure, as well as the risks, benefits, and alternatives to the procedure were explained to the patient in detail and all of her questions were answered, after which, written informed consent was obtained. PROCEDURE: Prior to the procedure, sonography revealed a developing focal asymmetry in the left breast with a correlating 4:00 solid irregular mass.. A time-out was performed, the lesion intended for biopsy was targeted and the skin of the left breast was then prepped and draped in the usual sterile fashion. Using sonographic guidance, sterile technique, and 1% lidocaine without epinephrine for local anesthesia, a total of 10 cores were obtained through the targeted area with a 12-gauge vacuum-assisted Celero core biopsy device. At the completion of tissue sampling, a single open coil metallic clip was deposited at the biopsy site. An appropriate sample was obtained. The postprocedure 2-view direct digital mammogram reveals satisfactory positioning of the biopsy clip. The patient tolerated the procedure well and, after assuring adequate hemostasis, was discharged in good condition after reviewing postbiopsy breast care instructions. Final pathology results are pending. MM/MM tomosynthesis diagnostic LT IMPRESSION: 1. Uncomplicated sonographically-guided core biopsy of the left breast. The 2-view direct digital postprocedure mammogram reveals satisfactory positioning of the biopsy clip. 2. Final pathology results are pending. A separate report with final recommendations will be issued once these results are made available. Electronically signed by: Lynn Rider DO 11/01/2024 12:38 PM EDT
--- OUTSIDE RECORDS SUMMARY | 2024-11-01 10:25 | XMS_ITS | Encounter Summary ---
Author Organization [facility] [place], Address [address] [place] [address] Phone Care Team Providers Care Heel Slugger Name Role Phone Christiano Lloyd MD Primary Care Provider + Reason for Visit * Reason Onset Date Comments Med Refill 08/11/2023 Encounter Details Date Type Department Care Team (Late st Contact Info) Description 08/11/2023 Refill [facility] [address] [place] [address] Garret Jarrett MD Social History [...] Visit [facility] [place], [address] [place] [address] Vivek Montana MD [address] [place] [phone] documented as of this encounter Visit Diagnoses Not on filedocumented in this encounter Care Teams Heel Slugger Relationship Specialty Start Date End Date Christiano Lloyd MD PCP - General Internal Medicine 11/26/21 documented as of this encounter
[2024-11-01] MEDS: Lidocaine HCl 1 % 20 ML VIAL SUBCUT (10:41)
[2024-11-01] MEDS: Sodium Bicarbonate 8.4% 50 MEQ/50 ML VIAL SUBCUT (10:42)
== END 2024-11-01 09:53 | disposition home or self-care (01) ==
LOC: HO.MAMMO 09:52
PROVIDERS: Pathology Anatomic Pathology & Clinical Pathology; PCP Pediatrics; Visit Provider Pediatrics
DX: C50.512 Malignant neoplasm of lower-outer quadrant of left female breast (principal); Z17.0 Estrogen receptor positive status [ER+]; Z17.21 Progesterone receptor positive status
CPT/HCPCS: 19083; 77061; 77065; 88305; 88341; 88342; 88360; 88374; A4648; J2003

== ENCOUNTER → 2024-11-01 10:00 | Outpatient (BNV) | payer OTHER, SELFPAY | PROVIDERS: PCP Pediatrics; Visit Provider Internal Medicine | DX: N63.20 Unspecified lump in the left breast, unspecified quadrant (principal) | CPT/HCPCS: 19083; 77065 ==